=== PATIENT | female | born 1970 | race Caucasian/White ===

== ENCOUNTER → 2018-08-25 | Outpatient (CLI) | payer MEDICAID ==
[~2018-08-25] MED LIST: AC500T PO; ALPR-557 PO; ASPI1TAB PO; BPR150TCR PO; CEPH500C PO; CYCL10TA9 PO; DESV50TA PO; DICY10CA12 PO; LORA10TA7 PO; MELO-195 PO; NAPR550T PO; NYST15CR TOP; NYST30PO9 TOP; OMEP20CA12 PO; TRAM50TA2 PO
[2018-08-25 12:11] LABS: BILIRUBIN,URINE NEGATIVE (NEGATIVE); CLARITY,URINE SLIGHTLY CLOUDY; COLOR,URINE YELLOW; GLUCOSE, URINE (UA) NEGATIVE (NEGATIVE); KETONES,URINE NEGATIVE (NEGATIVE); LEUKOCYTE ESTERASE ,URINE 3+ (NEGATIVE); NITRITE,URINE NEGATIVE (NEGATIVE); PH,URINE 6 (5-9); PROTEIN,URINE 2+ (NEGATIVE); UROBILINOGEN,URINE NORMAL (NORMAL)
[2018-08-25 12:18] LABS: BACTERIA,URINE FEW /HPF; RBC,URINE 0-2 /HPF; SQUAMOUS EPITHELIAL CELL,UR 0-2 /HPF; WBC,URINE >100 /HPF
== END ==
LOC: LAB 11:53
PROVIDERS: ATTEND Family Medicine
DX: N39.0 Urinary tract infection, site not specified (principal); R31.9 Hematuria, unspecified
CPT/HCPCS: 81000; 87077; 87088; 87186

== ENCOUNTER → 2019-02-27 | Outpatient (CLI) | payer MEDICAID ==
--- NOTE | 2019-02-27 09:01 | Diagnostic Imaging Report ---
PROCEDURE: CT head without contrast. TECHNIQUE: Multiple contiguous axial images were obtained through the brain without the use of intravenous contrast. Auto Exposure Controls were utilized during the CT exam to meet ALARA standards for radiation dose reduction. INDICATION: Nonresponsive. No prior studies are available for comparison. FINDINGS: Ventricular size and sulcal pattern are unremarkable. No sulcal effacement or midline shift is seen. No acute intra-axial or extra-axial hemorrhage is detected. Cisterns are patent. Visualized paranasal sinuses demonstrate some mucosal thickening of ethmoid air cells. IMPRESSION: No acute intracranial process is detected. Dictated by: Dictated on workstation # [id number]
== END ==
LOC: RAD 08:01
PROVIDERS: ATTEND Family Medicine
DX: R40.20 Unspecified coma (principal)
CPT/HCPCS: 70450

== ENCOUNTER 2020-03-02 19:40 | Emergency (ER) | payer MEDICAID ==
[~2020-03-02] VITALS: Ht 167.7 cm; Wt 99.7 kg
[2020-03-02 19:56] VITALS: BP 160/88
[2020-03-02] MEDS ORDERED: RX-ONDANSETRON 4 MG ODT (ZOFRAN) PPK #4 PO STA (20:08)
[2020-03-02] MEDS ORDERED: RX-TRIMETH/SULFA. 160-800 MG (BACTRIM DS) TAB PPK#2 PO STA (20:22)
[2020-03-02] MEDS ORDERED: RX-MUPIROCIN (BACTROBAN) 2% OINT 22 GM TUBE TOP STA (20:22)
[2020-03-02] MEDS ORDERED: SULF1TAB35 PO (20:25)
--- NOTE | 2020-03-02 20:25 | ED Integumentary General ---
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 She is unsure of the specific injury. Her has found spiders in their home. She has been expressing some purulent drainage. No history of MRSA. Last tetanus within 5 years. Timing/Duration: getting worse Severity: moderate Location: hands (right index finger) Possible Cause: insect bite (possible) Allergies and Home Medications Allergies Coded Allergies: No Known Drug Allergies (Unverified , 10/17/09) Home Medications Alprazolam 0.5 Mg Tab, 0.75 MG PO TID PRN for ANXIETY, (Reported) Desvenlafaxine Succinate 50 Mg Tab.sr.24h, 50 MG PO DAILY, (Reported) Dicyclomine Hcl 10 Mg Capsule, 10 MG PO AC, (Reported) Loratadine 10 Mg Tablet, 10 MG PO DAILY, (Reported) Meloxicam 15 Mg Tablet, 15 MG PO DAILY, (Reported) Nystatin 15 Gm Cream..g., 0 TOP TID Prescribed by: MARVA KENYON on 04/29/154 Nystatin 60 Gm Powder, 0 TOP TID Prescribed by: MARVA KENYON on 04/29/154 Omeprazole 20 Mg Capsule.dr, 20 MG PO DAILY, (Reported) Sulfamethoxazole/Trimethoprim 1 Each Tablet, 1 EACH PO BID Prescribed by: TEDDY HANNAH on 03/02/202024 Tramadol Hcl 50 Mg Tablet, 50 MG PO TID, (Reported) Patient Home Medication List Home Medication List Reviewed: Yes Review of Systems Review of Systems Constitutional: no symptoms reported, see HPI Skin: see HPI, change in color (erythema) All Other Systems Reviewed Negative Unless Noted: Yes Past Gqqsrqm-Ckteuf-Oongqp Hx Past Med/Social Hx: Reviewed Nursing Past Med/Soc Hx Patient Social History Alcohol Use: Denies Use Recreational Drug Use: No Smoking Status: Current Everyday Smoker Type Used: Cigarettes Recent Foreign Travel: No Contact w/Someone Who Travel: No Recent Hopitalizations: No Physical Abuse: No Sexual Abuse: No Mistreated: No Fear: No Immunizations Up To Date Date of Influenza Vaccine: Jan 28, 2012 Seasonal Allergies Seasonal Allergies: Yes Past Medical History Surgeries: Yes Gallbladder, 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 Respiratory: No Cardiac: No Neurological: No 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: 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 Genitourinary: No Gastrointestinal: Yes Gastroesophageal Reflux, Irritable Bowel Musculoskeletal: No Endocrine: No HEENT: No Cancer: No Psychosocial: Yes Anxiety, Depression Integumentary: No Blood Disorders: No Physical Exam Vital Signs Vital Signs - First Documented 03/02/20 19:56 Temp 36.9 Pulse 97 Resp 18 B/P (MAP) 160/88 (112) Pulse Ox 95 Capillary Refill : General Appearance: WD/WN, no apparent distress Cardiovascular: normal peripheral pulses, regular rate, rhythm Respiratory: chest non-tender, lungs clear, normal breath sounds Gastrointestinal: normal bowel sounds, non tender Neurologic/Psychiatric: no motor/sensory deficits, alert, normal mood/affect, oriented x 3 Skin: normal color Skin Problem Location: upper extremities (right index finger) Skin Problem Character: abscess (with gentle pressure to the right index finger purulent drainage expressed, culture obtained.), erythema, tenderness Comments Wound to right index finger irrigated with Hibiclens and 500 ML's of sterile saline, triple antibiotic ointment and sterile dressing applied. Progress/Results/Core Measures Results/Orders My Orders Orders - TEDDY HANNAH Wound Culture (03/02/20 20:10) Rx-Trimeth/Sulfameth Ds Tab (Rx-Bactrim/ (03/02/20 20:22) Rx-Mupirocin 2% Oint (Rx-Bactroban) (03/02/20 20:22) Vital Signs/I&O 03/02/20 19:56 Temp 36.9 Pulse 97 Resp 18 B/P (MAP) 160/88 (112) Pulse Ox 95 Departure Impression Primary Impression: Abscess of right index finger Disposition: HOME, SELF-CARE Condition: Improved Departure-Patient Inst. Decision time for Depature: 20:20 Referrals: GUERA WHALEY DO (PCP/Family) Primary Care Physician Patient Instructions: Wound Care (DC), Methicillin-Resistant Staphylococcus aureus (MRSA) Add. Discharge Instructions: Take antibiotics as prescribed. Clean wound with soap and water and apply Bactroban ointment 3 times daily. You may alternate between Tylenol 650 mg and ibuprofen 600 mg every 4 hours for pain. Avoid applying any heat to the right index finger. Follow-up with Dr. Gellender symptoms are not improving or worsen. Return to the emergency department for new, urgent health care needs. All discharge instructions reviewed with patient and/or family. Voiced understanding. Scripts Sulfamethoxazole/Trimethoprim (Bactrim Ds Tablet) 1 Each Tablet 1 EACH PO BID, #14 TAB 0 Refills Prov: TEDDY HANNAH 03/02/20 TEDDY HANNAH Mar 02, 2020 20:25
== END 2020-03-02 20:36 | disposition home or self-care (01) ==
LOC: EDUNIT# 19:40 → ER 19:43
DX: L02.511 Cutaneous abscess of right hand (principal); F41.9 Anxiety disorder, unspecified; F32.9 Major depressive disorder, single episode, unspecified; K21.9 Gastro-esophageal reflux disease without esophagitis; F17.210 Nicotine dependence, cigarettes, uncomplicated
CPT/HCPCS: 87070; 87077; 87205; 99283